=== PATIENT | male | born 1995 | race Caucasian/White ===

== ENCOUNTER 2023-09-18 09:31 | Emergency (ER) | payer MEDICAID, OTHER ==
[~2023-09-18] VITALS: Ht 167.6 cm; Wt 112.5 kg
[2023-09-18 09:32] VITALS: BP 145/85; TEMP 99.8; O2SAT 97
[2023-09-18] MEDS ORDERED: BENZ200C70 PO (11:53)
[2023-09-18] MEDS ORDERED: IBUP-1022 PO (11:53)
== END 2023-09-18 12:02 | disposition left against medical advice (07) ==
LOC: M ED 09:31
DX: J06.9 Acute upper respiratory infection, unspecified (principal); Z53.9 Procedure and treatment not carried out, unspecified reason

== ENCOUNTER 2025-06-23 19:23 | Emergency (ER) | payer OTHER, SELFPAY ==
[~2025-06-23] VITALS: Ht 167.6 cm; Wt 120.0 kg
[~2025-06-23 19:23] MED LIST: BENZ200C70 PO; IBUP600T42 PO
[2025-06-23 20:14] LABS: BASO # 0.1 10^3/uL (0.0-0.2); BASO % 0.5 % (0.0-1.0); EOS # 0.2 10^3/uL (0.0-0.5); EOS % 1.8 % (0.0-3.0); LYMPH # 2.8 10^3/uL (1.5-5.0); LYMPH % 28.7 % (24.0-44.0); MONO # 0.7 10^3/uL (0.0-0.8); MONO % 7.0 % (2.0-8.0); NEUTROPHILS # 6.0 10^3/uL (1.5-8.5); NEUTROPHILS % 61.6 % (36.0-66.0); PLATELET COUNT, AUTOMATED 239 10^3/uL (150-450)
[2025-06-23 20:57] LABS: CALCIUM LEVEL 8.8 MG/DL (8.5-10.1); CARBON DIOXIDE LEVEL 28 MMOL/L (20-31); CHLORIDE LEVEL 103 MMOL/L (98-107); CREATININE FOR GFR 0.84 MG/DL (0.70-1.30); GLOMERULAR FILTRATION RATE > 90.0 (>60); POTASSIUM SERUM 3.7 MMOL/L (3.5-5.1); SODIUM LEVEL 141 MMOL/L (136-145)
[2025-06-24] MEDS ORDERED: HYDR25SU61 PR (00:43)
[2025-06-24] MEDS ORDERED: COLA100C5 PO (00:43)
[2025-06-24 00:49] VITALS: BP 143/93; TEMP 97.2; O2SAT 98
== END 2025-06-24 00:50 | disposition home or self-care (01) ==
LOC: M ED 19:23
DX: K64.9 Unspecified hemorrhoids (principal); F84.5 Asperger's syndrome; Z91.09 Other allergy status, other than to drugs and biological substances; Z79.899 Other long term (current) drug therapy